=== PATIENT | male | born 1985 | race Caucasian/White ===

== ENCOUNTER 2022-09-23 10:55 | Emergency (ER) | payer SELFPAY ==
[~2022-09-23] VITALS: Ht 172.7 cm; Wt 113.4 kg
[2022-09-23 11:09] VITALS: BP 159/104; PULSE 70; RESP 18; TEMP 98.4; O2SAT 98
[2022-09-23] MEDS ORDERED: BACITRACIN ZINC OINT UDPKT TOP ONE (11:30)
[2022-09-23] MEDS ORDERED: TETANUS, DIPHTHERIA, PERTUSSIS VAC/PF 0.5ML (>10YR OLD) IM ONE (11:30)
[2022-09-23] MEDS ORDERED: LIDOCAINE HCL/PF 1% 10 MG/ML 5ML VIAL INFIL ONE (11:30)
[2022-09-23] MEDS ORDERED: BO1 TP (12:14)
== END 2022-09-23 13:07 | disposition home or self-care (01) ==
LOC: ER 11:17
DX: S61.512A Laceration without foreign body of left wrist, initial encounter (principal); X58.XXXA Exposure to other specified factors, initial encounter; Y93.89 Activity, other specified; Y92.89 Other specified places as the place of occurrence of the external cause; Y99.8 Other external cause status
CPT/HCPCS: 99282; J3490; Z7610 ×2